=== PATIENT | male | born 1970 | race Caucasian/White ===

== ENCOUNTER 2020-11-16 19:02 | Inpatient (IN) | payer OTHER ==
[2020-11-16 19:48] VITALS: BMI 36.5
[2020-11-16] MEDS ORDERED: BISMUTH SUBSALICYLATE 524 MG/30 ML UD PO PRN (22:11)
[2020-11-16] MEDS ORDERED: MAGNESIUM HYDROX 2400MG/30ML ORAL SUSPENSION 30 ML CUP PO PRN (22:11)
[2020-11-16] MEDS ORDERED: MAGNESIUM CITRATE 300 ML BOTTLE PO PRN (22:11)
[2020-11-16] MEDS ORDERED: ONDANSETRON *ODT* 4 MG TABLET SL PRN (22:11)
[2020-11-16] MEDS ORDERED: MAG HYDROX/AL HYDROX/SIMETH 30 ML UNIT-DOSE CUP PO PRN (22:11)
[2020-11-16] MEDS ORDERED: MENTHOL/PHENOL 1 EACH UD MM PRN (22:11)
[2020-11-16] MEDS ORDERED: ACETAMINOPHEN 325 MG TABLET (FP) PO PRN ×2 (22:11)
[2020-11-16] MEDS ORDERED: IBUPROFEN 400 MG TABLET (FP) PO PRN (22:11)
[2020-11-16] MEDS ORDERED: NICOTINE POLACRILEX 2 MG GUM BUC PRN (22:11)
[2020-11-17] MEDS ORDERED: chlordiazePOXIDE HCL 25 MG CAPSULE PO PRN (01:04)
[2020-11-17] MEDS: chlordiazePOXIDE HCL 25 MG CAPSULE PO SCH ×4 (05:34→23:16)
[2020-11-17] MEDS: PRENATAL VITAMINS W/ FOLIC ACID TABLET (FP) PO SCH (10:08)
[2020-11-17] MEDS: NICOTINE 21 MG/24 HOURS TOPICAL PATCH TD SCH (10:08)
[2020-11-17 13:47] LABS: BLOOD UREA NITROGEN 10.4 mg/dL (7-18)
[2020-11-17 13:48] LABS: CALCIUM 8.9 mg/dL (8.5-10.1)
[2020-11-17 13:50] LABS: ALBUMIN 3.4 g/dl (3.4-5.0)
[2020-11-17 13:52] LABS: CREATININE 1.2 mg/dL (0.55-1.3)
[2020-11-17 13:54] LABS: BILIRUBIN,TOTAL 0.3 mg/dL (0.2-1); TOT PROT 6.9 g/dl (6.4-8.2)
[2020-11-17 13:56] LABS: HEMATOCRIT 39.2 % (35.4-49); HEMOGLOBIN 12.9 GM/dL (11.7-16.9); MCH 29.4 pg (25.7-33.7); MCHC 32.9 g/dl (32.0-35.9); MEAN CELL VOLUME 89.3 fl (80-96); MEAN PLT VOLUME 9.4 fl (7.5-11.1); PLATELET COUNT 243 K/MM3 (134-434); RBC 4.39 M/mm3 (4.00-5.60); RDW 13.8 % (11.9-15.9); WHITE BLOOD COUNT 7.1 K/mm3 (4.0-10.0)
[2020-11-17] MEDS: THIAMINE HCL 100 MG TABLET (FP) PO SCH (23:16)
[2020-11-17] MEDS: MELATONIN 5 MG TABLETS PO SCH (23:16)
[2020-11-18] MEDS: chlordiazePOXIDE HCL 25 MG CAPSULE PO SCH ×4 (05:39→22:04)
[2020-11-18] MEDS: PRENATAL VITAMINS W/ FOLIC ACID TABLET (FP) PO SCH (11:32)
[2020-11-18] MEDS: NICOTINE 21 MG/24 HOURS TOPICAL PATCH TD SCH (11:34)
[2020-11-18] MEDS: THIAMINE HCL 100 MG TABLET (FP) PO SCH (22:05)
[2020-11-18] MEDS: MELATONIN 5 MG TABLETS PO SCH (22:05)
[2020-11-19] MEDS ORDERED: chlordiazePOXIDE HCL 10 MG CAPSULE PO PRN
[2020-11-19] MEDS: chlordiazePOXIDE HCL 10 MG CAPSULE PO SCH ×4 (05:54→22:10)
[2020-11-19 10:06] LABS: SARS-CoV-2 NAA Not Detected (Not Detected)
[2020-11-19] MEDS: PRENATAL VITAMINS W/ FOLIC ACID TABLET (FP) PO SCH (11:08)
[2020-11-19] MEDS: NICOTINE 21 MG/24 HOURS TOPICAL PATCH TD SCH (11:10)
[2020-11-19] MEDS: THIAMINE HCL 100 MG TABLET (FP) PO SCH (22:10)
[2020-11-19] MEDS: MELATONIN 5 MG TABLETS PO SCH (22:11)
[2020-11-20] MEDS: chlordiazePOXIDE HCL 10 MG CAPSULE PO SCH ×2 (06:05→18:12)
[2020-11-20] MEDS: NICOTINE 21 MG/24 HOURS TOPICAL PATCH TD SCH (10:10)
[2020-11-20] MEDS: PRENATAL VITAMINS W/ FOLIC ACID TABLET (FP) PO SCH (10:11)
[2020-11-20] MEDS: METHOCARBAMOL 500 MG TABLET PO PRN ×2 (10:11→22:40)
[2020-11-20] MEDS: THIAMINE HCL 100 MG TABLET (FP) PO SCH (22:40)
[2020-11-20] MEDS: MELATONIN 5 MG TABLETS PO SCH (22:41)
[2020-11-21] MEDS ORDERED: chlordiazePOXIDE HCL 10 MG CAPSULE PO ONE (05:00)
[2020-11-21 09:19] VITALS: BP 104/77; PULSE 87; TEMP 98
[2020-11-21] MEDS: PRENATAL VITAMINS W/ FOLIC ACID TABLET (FP) PO SCH (10:07)
[2020-11-21] MEDS: NICOTINE 21 MG/24 HOURS TOPICAL PATCH TD SCH (10:07)
== END 2020-11-21 11:15 | disposition other institution (70) | DRG 774 ==
LOC: YASAS 19:02 → Y6N 23:09
PROVIDERS: ADMIT Allergy & Immunology; ATTEND Allergy & Immunology
PROC: HZ2ZZZZ Detoxification Services for Substance Abuse Treatment (ICD-10-PCS; principal; 2020-11-16)
DX: F10.230 Alcohol dependence with withdrawal, uncomplicated (principal); F14.20 Cocaine dependence, uncomplicated; F17.210 Nicotine dependence, cigarettes, uncomplicated; F19.24 Other psychoactive substance dependence with psychoactive substance-induced mood disorder; F25.9 Schizoaffective disorder, unspecified; F31.9 Bipolar disorder, unspecified; Z59.0 Homelessness; Z56.0 Unemployment, unspecified
CPT/HCPCS: 36415; 80053; 82962; 85027; 86780; 93005; 93010; C9803; U0003; U0005

== ENCOUNTER 2020-11-21 10:59 | Inpatient (IN) | payer OTHER ==
[2020-11-21] MEDS ORDERED: MAG HYDROX/AL HYDROX/SIMETH 30 ML UNIT-DOSE CUP PO PRN (13:48)
[2020-11-21] MEDS ORDERED: NICOTINE POLACRILEX 2 MG GUM BUC PRN (13:48)
[2020-11-21] MEDS ORDERED: MAGNESIUM HYDROX 2400MG/30ML ORAL SUSPENSION 30 ML CUP PO PRN (13:48)
[2020-11-21] MEDS ORDERED: MENTHOL/PHENOL 1 EACH UD MM PRN (13:48)
[2020-11-21] MEDS ORDERED: LOPERAMIDE HCL 2 MG CAPSULE PO PRN (13:48)
[2020-11-21] MEDS ORDERED: P-EPHED 60MG/TRIPROLIDI 2.5MG TABLET PO PRN (13:48)
[2020-11-21] MEDS ORDERED: guaiFENesin 200 MG/10 ML 10 ML UNIT-DOSE CUPS PO PRN (13:48)
[2020-11-21] MEDS ORDERED: MAGNESIUM CITRATE 300 ML BOTTLE PO PRN (13:48)
[2020-11-21] MEDS ORDERED: ACETAMINOPHEN 325 MG TABLET (FP) PO PRN (13:48)
[2020-11-21] MEDS ORDERED: hydrOXYzine PAMOATE 25 MG CAPSULE (FP) PO PRN (13:48)
[2020-11-21] MEDS: METHOCARBAMOL 500 MG TABLET PO SCH ×3 (14:45→21:22)
[2020-11-21] MEDS: THIAMINE HCL 100 MG TABLET (FP) PO SCH (21:21)
[2020-11-21] MEDS ORDERED: MELATONIN 5 MG TABLETS PO SCH (22:00)
[2020-11-22] MEDS: PRENATAL VITAMINS W/ FOLIC ACID TABLET (FP) PO SCH (10:34)
[2020-11-22] MEDS: NICOTINE 21 MG/24 HOURS TOPICAL PATCH TD SCH (10:34)
[2020-11-22] MEDS: METHOCARBAMOL 500 MG TABLET PO SCH ×5 (10:34→22:31)
[2020-11-22] MEDS ORDERED: PT OWN MED DRAWER 7, Y5N ONE (20:31)
[2020-11-22] MEDS ORDERED: HALOPERIDOL 5 MG TABLET PO SCH (22:00)
[2020-11-22] MEDS: MIRTAZAPINE 15 MG TABLET (FP) PO SCH ×2 (22:00→22:31)
[2020-11-22] MEDS: HALOPERIDOL 5 MG TABLET PO SCH ×2 (22:00→22:30)
[2020-11-22] MEDS: BENZTROPINE MESYLATE 1 MG TABLET PO SCH ×2 (22:00→22:30)
[2020-11-22] MEDS: THIAMINE HCL 100 MG TABLET (FP) PO SCH ×2 (22:01→22:30)
[2020-11-22] MEDS: MELATONIN 5 MG TABLETS PO PRN (22:31)
[2020-11-23] MEDS: PRENATAL VITAMINS W/ FOLIC ACID TABLET (FP) PO SCH (10:49)
[2020-11-23] MEDS: METHOCARBAMOL 500 MG TABLET PO SCH ×4 (10:49→21:41)
[2020-11-23] MEDS: NICOTINE 21 MG/24 HOURS TOPICAL PATCH TD SCH (10:49)
[2020-11-23] MEDS ORDERED: PT OWN MED DRAWER 7, Y5N ONE (18:46)
[2020-11-23] MEDS: BENZTROPINE MESYLATE 1 MG TABLET PO SCH (21:41)
[2020-11-23] MEDS: MIRTAZAPINE 15 MG TABLET (FP) PO SCH (21:42)
[2020-11-23] MEDS: THIAMINE HCL 100 MG TABLET (FP) PO SCH (21:42)
[2020-11-23] MEDS: HALOPERIDOL 5 MG TABLET PO SCH (21:42)
[2020-11-23] MEDS: IBUPROFEN 400 MG TABLET (FP) PO PRN (21:43)
[2020-11-24] MEDS: METHOCARBAMOL 500 MG TABLET PO SCH ×4 (10:22→21:07)
[2020-11-24] MEDS: PRENATAL VITAMINS W/ FOLIC ACID TABLET (FP) PO SCH (10:22)
[2020-11-24] MEDS: NICOTINE 21 MG/24 HOURS TOPICAL PATCH TD SCH (10:22)
[2020-11-24] MEDS ORDERED: PT OWN MED DRAWER 7, Y5N ONE (18:23)
[2020-11-24] MEDS: MELATONIN 5 MG TABLETS PO PRN (21:06)
[2020-11-24] MEDS: THIAMINE HCL 100 MG TABLET (FP) PO SCH (21:06)
[2020-11-24] MEDS: BENZTROPINE MESYLATE 1 MG TABLET PO SCH (21:07)
[2020-11-24] MEDS: MIRTAZAPINE 15 MG TABLET (FP) PO SCH (21:07)
[2020-11-24] MEDS: HALOPERIDOL 5 MG TABLET PO SCH (21:07)
[2020-11-25 08:08] LABS: SARS-CoV-2 NAA Not Detected (Not Detected)
[2020-11-25] MEDS ORDERED: HALOPERIDOL DECANOATE 100 MG/ML IM ONE (10:00)
[2020-11-25] MEDS ORDERED: PT OWN MED DRAWER 7, Y5N ONE (10:37)
[2020-11-25] MEDS: METHOCARBAMOL 500 MG TABLET PO SCH ×4 (10:52→21:34)
[2020-11-25] MEDS: PRENATAL VITAMINS W/ FOLIC ACID TABLET (FP) PO SCH (10:52)
[2020-11-25] MEDS: NICOTINE 21 MG/24 HOURS TOPICAL PATCH TD SCH (10:52)
[2020-11-25] MEDS: MELATONIN 5 MG TABLETS PO PRN (21:34)
[2020-11-25] MEDS: BENZTROPINE MESYLATE 1 MG TABLET PO SCH (21:34)
[2020-11-25] MEDS: THIAMINE HCL 100 MG TABLET (FP) PO SCH (21:34)
[2020-11-25] MEDS: HALOPERIDOL 5 MG TABLET PO SCH (21:34)
[2020-11-25] MEDS: MIRTAZAPINE 15 MG TABLET (FP) PO SCH (21:35)
[2020-11-26] MEDS: PRENATAL VITAMINS W/ FOLIC ACID TABLET (FP) PO SCH (10:33)
[2020-11-26] MEDS: NICOTINE 21 MG/24 HOURS TOPICAL PATCH TD SCH (10:33)
[2020-11-26] MEDS: METHOCARBAMOL 500 MG TABLET PO SCH ×4 (10:33→21:20)
[2020-11-26] MEDS: HALOPERIDOL 5 MG TABLET PO SCH (21:20)
[2020-11-26] MEDS: MELATONIN 5 MG TABLETS PO PRN (21:21)
[2020-11-26] MEDS: BENZTROPINE MESYLATE 1 MG TABLET PO SCH (21:21)
[2020-11-26] MEDS: MIRTAZAPINE 15 MG TABLET (FP) PO SCH (21:21)
[2020-11-26] MEDS: THIAMINE HCL 100 MG TABLET (FP) PO SCH (21:21)
[2020-11-27] MEDS: METHOCARBAMOL 500 MG TABLET PO SCH ×4 (10:18→21:28)
[2020-11-27] MEDS: PRENATAL VITAMINS W/ FOLIC ACID TABLET (FP) PO SCH (10:18)
[2020-11-27] MEDS: NICOTINE 21 MG/24 HOURS TOPICAL PATCH TD SCH (10:18)
[2020-11-27] MEDS: BENZTROPINE MESYLATE 1 MG TABLET PO SCH (21:28)
[2020-11-27] MEDS: MELATONIN 5 MG TABLETS PO PRN (21:28)
[2020-11-27] MEDS: HALOPERIDOL 5 MG TABLET PO SCH (21:28)
[2020-11-27] MEDS: MIRTAZAPINE 15 MG TABLET (FP) PO SCH (21:28)
[2020-11-27] MEDS: THIAMINE HCL 100 MG TABLET (FP) PO SCH (21:28)
[2020-11-28] MEDS ORDERED: HALOPERIDOL DECANOATE 100 MG/ML IM ONE (10:00)
[2020-11-28] MEDS: METHOCARBAMOL 500 MG TABLET PO SCH ×4 (10:56→21:16)
[2020-11-28] MEDS: NICOTINE 21 MG/24 HOURS TOPICAL PATCH TD SCH (10:56)
[2020-11-28] MEDS: PRENATAL VITAMINS W/ FOLIC ACID TABLET (FP) PO SCH (10:56)
[2020-11-28] MEDS: BENZTROPINE MESYLATE 1 MG TABLET PO SCH (21:16)
[2020-11-28] MEDS: THIAMINE HCL 100 MG TABLET (FP) PO SCH (21:17)
[2020-11-28] MEDS: MIRTAZAPINE 15 MG TABLET (FP) PO SCH (21:17)
[2020-11-28] MEDS: HALOPERIDOL 5 MG TABLET PO SCH (21:17)
[2020-11-29] MEDS: METHOCARBAMOL 500 MG TABLET PO SCH ×4 (10:45→21:24)
[2020-11-29] MEDS: PRENATAL VITAMINS W/ FOLIC ACID TABLET (FP) PO SCH (10:45)
[2020-11-29] MEDS: NICOTINE 21 MG/24 HOURS TOPICAL PATCH TD SCH (10:45)
[2020-11-29] MEDS: THIAMINE HCL 100 MG TABLET (FP) PO SCH (21:24)
[2020-11-29] MEDS: MELATONIN 5 MG TABLETS PO PRN (21:24)
[2020-11-29] MEDS: MIRTAZAPINE 15 MG TABLET (FP) PO SCH (21:24)
[2020-11-29] MEDS: BENZTROPINE MESYLATE 1 MG TABLET PO SCH (21:24)
[2020-11-29] MEDS: HALOPERIDOL 5 MG TABLET PO SCH (21:24)
[2020-11-30] MEDS: NICOTINE 21 MG/24 HOURS TOPICAL PATCH TD SCH (10:39)
[2020-11-30] MEDS: PRENATAL VITAMINS W/ FOLIC ACID TABLET (FP) PO SCH (10:39)
[2020-11-30] MEDS: METHOCARBAMOL 500 MG TABLET PO SCH ×4 (10:39→21:51)
[2020-11-30] MEDS: MIRTAZAPINE 15 MG TABLET (FP) PO SCH (21:51)
[2020-11-30] MEDS: BENZTROPINE MESYLATE 1 MG TABLET PO SCH (21:51)
[2020-11-30] MEDS: HALOPERIDOL 5 MG TABLET PO SCH (21:51)
[2020-11-30] MEDS: THIAMINE HCL 100 MG TABLET (FP) PO SCH (21:51)
[2020-11-30] MEDS: MELATONIN 5 MG TABLETS PO PRN (21:52)
[2020-12-01] MEDS: NICOTINE 21 MG/24 HOURS TOPICAL PATCH TD SCH (10:10)
[2020-12-01] MEDS: PRENATAL VITAMINS W/ FOLIC ACID TABLET (FP) PO SCH (10:10)
[2020-12-01] MEDS: METHOCARBAMOL 500 MG TABLET PO SCH ×4 (10:10→21:34)
[2020-12-01] MEDS: HALOPERIDOL 5 MG TABLET PO SCH (21:23)
[2020-12-01] MEDS: MIRTAZAPINE 15 MG TABLET (FP) PO SCH (21:23)
[2020-12-01] MEDS: THIAMINE HCL 100 MG TABLET (FP) PO SCH (21:23)
[2020-12-01] MEDS: BENZTROPINE MESYLATE 1 MG TABLET PO SCH (21:23)
[2020-12-01] MEDS: IBUPROFEN 400 MG TABLET (FP) PO PRN (23:55)
[2020-12-02] MEDS: NICOTINE 21 MG/24 HOURS TOPICAL PATCH TD SCH (10:08)
[2020-12-02] MEDS: METHOCARBAMOL 500 MG TABLET PO SCH ×4 (10:11→21:19)
[2020-12-02] MEDS: PRENATAL VITAMINS W/ FOLIC ACID TABLET (FP) PO SCH (10:11)
[2020-12-02] MEDS: BENZTROPINE MESYLATE 1 MG TABLET PO SCH (21:18)
[2020-12-02] MEDS: HALOPERIDOL 5 MG TABLET PO SCH (21:18)
[2020-12-02] MEDS: MIRTAZAPINE 15 MG TABLET (FP) PO SCH (21:18)
[2020-12-02] MEDS: THIAMINE HCL 100 MG TABLET (FP) PO SCH (21:19)
[2020-12-03] MEDS: PRENATAL VITAMINS W/ FOLIC ACID TABLET (FP) PO SCH (09:47)
[2020-12-03] MEDS: NICOTINE 21 MG/24 HOURS TOPICAL PATCH TD SCH (09:47)
[2020-12-03] MEDS: METHOCARBAMOL 500 MG TABLET PO SCH ×4 (09:47→23:00)
[2020-12-03 20:24] VITALS: TEMP 97.5
[2020-12-03] MEDS: BENZTROPINE MESYLATE 1 MG TABLET PO SCH (23:00)
[2020-12-03] MEDS: THIAMINE HCL 100 MG TABLET (FP) PO SCH (23:00)
[2020-12-03] MEDS: MIRTAZAPINE 15 MG TABLET (FP) PO SCH (23:00)
[2020-12-03] MEDS: HALOPERIDOL 5 MG TABLET PO SCH (23:00)
[2020-12-04 06:41] VITALS: BP 108/75; PULSE 81
== END 2020-12-04 09:15 | disposition home or self-care (01) | DRG 772 ==
LOC: YASAS 10:59 → Y3W 11:01
PROVIDERS: ADMIT Allergy & Immunology; ATTEND Allergy & Immunology
PROC: HZ42ZZZ Group Counseling for Substance Abuse Treatment, Cognitive-Behavioral (ICD-10-PCS; principal; 2020-11-21)
DX: F10.20 Alcohol dependence, uncomplicated (principal); F14.20 Cocaine dependence, uncomplicated; F17.210 Nicotine dependence, cigarettes, uncomplicated; F19.282 Other psychoactive substance dependence with psychoactive substance-induced sleep disorder; F19.24 Other psychoactive substance dependence with psychoactive substance-induced mood disorder; F20.9 Schizophrenia, unspecified; F31.9 Bipolar disorder, unspecified; Z91.5 Personal history of self-harm; Z56.0 Unemployment, unspecified; Z59.0 Homelessness
CPT/HCPCS: C9803; U0003; U0005